=== PATIENT | male | born 1970 | race Caucasian/White ===

== ENCOUNTER 2019-12-15 13:22 | Emergency (ER) | payer OTHER ==
[~2019-12-15] VITALS: Ht 167.6 cm; Wt 98.5 kg
[2019-12-15 13:27] VITALS: Ht 167.6 cm; Wt 98.5 kg
[2019-12-15 14:01] LABS: BASOPHIL % 0.3 % (0-2); PLATELET COUNT 311 x10^3mcL (130-400); RED CELL DISTRIBUTION WIDTH 13.7 % (11.5-14.5)
[2019-12-15 14:43] LABS: CARBON DIOXIDE 25.5 mmol/L (21-32); CHLORIDE SERUM 102 mmol/L (98-107); CREATININE SERUM 1.3 mg/dL (0.7-1.3); GFR1 > 60 mL/min; GLUCOSE SERUM 159 mg/dL (74-106); SODIUM SERUM 138 mmol/L (136-145)
[2019-12-15 14:44] LABS: ALBUMIN 3.3 g/dL (3.4-5.0); ALKALINE PHOSPHATASE 82 U/L (46-116); ALT/SGPT 33 U/L (16-63); AST/SGOT 29 U/L (15-37); BILIRUBIN TOTAL 0.19 mg/dL (0.20-1.00); CALCIUM 9.2 mg/dL (8.5-10.1); TOTAL PROTEIN, SERUM 7.7 g/dL (6.4-8.2)
[2019-12-15 16:15] VITALS: BP 124/68
== END 2019-12-15 17:10 | disposition left against medical advice (07) ==
LOC: ED 13:22
PROVIDERS: Student in an Organized Health Care Education/Training Program
DX: R07.89 Other chest pain (principal); R55 Syncope and collapse; S09.8XXA Other specified injuries of head, initial encounter; R94.31 Abnormal electrocardiogram [ECG] [EKG]; S50.811A Abrasion of right forearm, initial encounter; S50.311A Abrasion of right elbow, initial encounter; Z86.19 Personal history of other infectious and parasitic diseases; Z98.890 Other specified postprocedural states; V48.5XXA Car driver injured in noncollision transport accident in traffic accident, initial encounter; Y93.I9 Activity, other involving external motion; Y92.411 Interstate highway as the place of occurrence of the external cause; Y99.8 Other external cause status
CPT/HCPCS: 83880; J1885; Q0092